=== PATIENT | male | born 2000 | race Asian ===

== ENCOUNTER 2021-02-07 04:12 | Emergency (ER) | payer OTHER ==
[~2021-02-07] VITALS: Ht 167.6 cm; Wt 63.5 kg
[2021-02-07 05:45] VITALS: BP 112/72; TEMP 98.1
== END 2021-02-07 05:45 | disposition home or self-care (01) ==
LOC: ED 04:15
DX: H10.213 Acute toxic conjunctivitis, bilateral (principal); T49.2X1A Poisoning by local astringents and local detergents, accidental (unintentional), initial encounter; X58.XXXA Exposure to other specified factors, initial encounter; Y92.89 Other specified places as the place of occurrence of the external cause
CPT/HCPCS: 99283; J0696; J1885